=== PATIENT | female | born 1955 | race Caucasian/White ===

== ENCOUNTER 2022-11-17 14:03 | Inpatient (IN) ==
--- NOTE | 2022-11-17 14:22 | Emergency Department Note ---
HPI General Chief complaint: Shortness of Breath/Dyspnea Stated complaint: SOB Time Seen by Provider: 11/17/22 14:07 Limitations: no limitations History of Present Illness HPI Narrative: Narrative: 67-year-old female with long history of pneumonia, COPD and heart failure presents the ER complaining of shortness of breath. She notes that she quit taking her torsemide she is very swollen and cannot breathe. She notes this is an going on since she was just discharged from the hospital in May 2022. She is seeing her PCP and is taking her inhalers but she is almost out of her nebulizer medications. She notes she uses oxygen at home intermittently but her dog recently to the extension cord and the oxygen tube. She denies any other complaints except for leg swelling, fatigue and weakness. She notes she would have come into the hospital sooner except her insurance dropped her coverage short term and she did not have the money to come to the ER. She is unsure why her regular doctor told her to quit taking her torsemide. Related Data Previous Rx's Medication Instructions Recorded amoxicillin 875 mg-potassium 1 tab PO BID #20 tabs 11/17/22 clavulanate 125 mg tablet azithromycin 250 mg tablet See Rx Instructions PO .COMPLEX #6 11/17/22 tabs furosemide 40 mg tablet (Lasix) 40 mg PO QAM #10 tabs 11/17/22 prednisone 20 mg tablet 40 mg PO QDAY 5 days #10 tabs 11/17/22 Allergies Allergy/AdvReac Type Severity Reaction Status Date / Time diphenhydramine AdvReac Intermediate Other Verified 11/17/22 14:12 fluticasone AdvReac Intermediate Other Verified 11/17/22 14:12 [From Advair Diskus] gabapentin AdvReac Intermediate Other Verified 11/17/22 14:12 salmeterol AdvReac Intermediate Other Verified 11/17/22 14:12 [From Advair Diskus] Sulfa (Sulfonamide AdvReac Intermediate Hives Verified 11/17/22 14:12 Antibiotics) Review of Systems ROS ROS Narrative: Narrative: Constitutional: Reports as per HPI; Denies fever, chills or sweats Cardiovascular: Reports palpitations; Denies chest pain or syncope Respiratory: Reports shortness of breath, cough, wheezes and phlegm Gastrointestinal: Reports nausea; Denies abdominal pain, vomiting or hematemesis PFSH Narrative Patient History Narrative: Narrative: Medical/Surgical/Family History All Active Problems (Updated 11/17/22 @ 18:45 by LLOYD Ewing) Congestive heart failure (Acute) Acute exacerbation of chronic obstructive pulmonary disease (Acute) Abnormal chest x-ray (Acute) Abnormal chest x-ray with multiple nodules (Acute) Hypoxemia (Acute) Exam Narrative Narrative: Narrative: General Limitations: no limitations General appearance: Present alert, grimacing, in no apparent distress, thin and other (Chronically ill-appearing); Absent in distress Head Head: Present atraumatic, normocephalic and normal inspection Eye Eye: Present normal appearance; Absent scleral icterus or conjunctival injection Respiratory Respiratory: Present rales/crackles (Bilateral lower quadrant); Absent respiratory distress Cardiovascular Cardiovascular: Present regular rate, normal rhythm, normal heart sounds and other (Frequent PVCs) Adbominal Abdominal: Present soft and normal bowel sounds; Absent distention or tenderness Neurological Neurological: Present alert and oriented X3 Psychiatric Psychiatric: Present normal affect and normal mood Course Vital Signs Vital signs: Vital Signs Temperature 98.1 F 11/17/22 14:10 Pulse Rate 83 11/17/22 14:10 Respiratory Rate 20 11/17/22 14:10 Blood Pressure 142/73 11/17/22 14:10 Pulse Oximetry (%) 94 11/17/22 14:10 Oxygen Delivery Method Room Air 11/17/22 14:10 Temperature 98.1 F 11/17/22 14:10 Pulse Rate 79 11/17/22 18:01 Respiratory Rate 22 11/17/22 18:01 Blood Pressure 114/96 11/17/22 18:01 Pulse Oximetry (%) 97 11/17/22 18:01 Oxygen Delivery Method Nasal Cannula 11/17/22 18:01 Oxygen Flow Rate (L/min) 2 11/17/22 18:01 [facility] MDM Narrative Medical decision making narrative: Narrative: Clinical considerations include but not limited to COPD exacerbation, pneumonia, heart failure, NH. On arrival labs are ordered and IV is started. Patient's BNP is found to be 17,000. She is found to have approximately 4 torsemide pills left in her possession at approximately 20 mg per dose. EKG is reviewed by Dr. Ibanez reports nothing is acute. No ischemic changes. Repeat troponin is downtrending as first 1 was 1.10 and is likely due to a noncardiac cause is likely related to her hypoxemia. She notes she has been very active as she is currently on vacation and has traveled away from home. Labs are very reassuring and chest x-ray reveals significant pulmonary edema. 2 masses are found and patient is encouraged to follow-up for an outpatient CT to make sure that these resolve after receiving diuretics. She verbalizes understanding. She is also diagnosed with COPD exacerbation and her sputum culture is currently pending. She is discharged on azithromycin, Augmentin and prednisone in addition to Lasix 40 mg. She is given oxygen tubing here and she is also ordered a cord that should be here today or tomorrow as she does not have the one for her current oxygen machine. She also agrees to make sure she takes her Lasix as she feels this was this caused her to swell up and make her not breathe. She is requesting to be discharged at this time. She agrees to recheck for any new or worsening symptoms. She is given a total of 100 mg of Lasix as she was given 80 mg of Lasix on arrival an additional 20 prior to departure. Oxygen saturation is found to be 92% on room air after Lasix administration. Oxygen is removed and she quickly drops down to 82% on room air at rest. We are unable to get home oxygen since she already has an oxygen supplier for at this time.[id number] Mahajan who agreed to accept patient for admission at this time to acute medical surgical status Lab Data 11/17/22 14:20 Labs: Lab Results 11/17/22 11/17/22 11/17/22 Range/Units 14:20 14:20 14:20 WBC 13.8 H (4.5-11.0) K/mcL RBC 3.38 L (3.59-5.38) M/mcL Hgb 9.4 L (11.2-15.7) g/dL Hct 28.6 L (34.1-44.9) % POC Hct (36-48) MCV 84.6 (80.0-100.0) fL MCH 27.8 (26.0-34.0) pg MCHC 32.9 (31.0-36.0) g/dL RDW 15.3 H (11.5-14.5) % Plt Count 352 (140-440) K/mcL MPV 10.1 (8.8-12.5) fL Immature Gran % (Auto) 0.4 (0.0-0.5) % Neut % (Auto) 76.1 (38.0-78.0) % Lymph % (Auto) 13.3 L (15.5-49.0) % [place] % (Auto) 4.9 (1.0-12.0) % Eos % (Auto) 4.4 (0.0-7.0) % Baso % (Auto) 0.9 (0.0-2.0) % Lymph # (Auto) 1.84 (1.50-4.80) K/mcL [place] # (Auto) 0.68 (0.10-0.90) K/mcL Eos # (Auto) 0.61 (0.00-0.70) K/mcL Baso # (Auto) 0.12 (0.00-0.30) K/mcL Immature Gran # 0.05 (0.00-0.05) K/mcl Absolute Neutrophils 10.49 H (1.80-8.00) K/mcL POC VBG pH (7.32-7.42) POC VBG pCO2 at Temp (41-51) POC VBG pO2 (25-40) POC VBG HCO3 (24-28) POC VBG Total CO2 (25-29) POC Venous O2 Sat (40-70) POC VBG Base Excess (-2-2) VBG Lactic Acid (0.5-2) POC Sodium (133-145) POC Potassium (3.3-5.1) POC Chloride (96-108) POC Total CO2 (22-30) POC BUN (6-20) POC Creatinine (0.6-1.2) POC Glucose (70-105) POC WB Ioniz Calcium (1.16-1.32) Troponin T 0.10 H* (<0.03) ng/mL NT-Pro-B Natriuret Pep 99293.0 H (<125.0) pg/mL POC Troponin I (0.00-0.08) 11/17/22 11/17/22 11/17/22 Range/Units 14:24 14:39 15:29 WBC (4.5-11.0) K/mcL RBC (3.59-5.38) M/mcL Hgb (11.2-15.7) g/dL Hct (34.1-44.9) % POC Hct 31.0 L (36-48) MCV (80.0-100.0) fL MCH (26.0-34.0) pg MCHC (31.0-36.0) g/dL RDW (11.5-14.5) % Plt Count (140-440) K/mcL MPV (8.8-12.5) fL Immature Gran % (Auto) (0.0-0.5) % Neut % (Auto) (38.0-78.0) % Lymph % (Auto) (15.5-49.0) % [place] % (Auto) (1.0-12.0) % Eos % (Auto) (0.0-7.0) % Baso % (Auto) (0.0-2.0) % Lymph # (Auto) (1.50-4.80) K/mcL [place] # (Auto) (0.10-0.90) K/mcL Eos # (Auto) (0.00-0.70) K/mcL Baso # (Auto) (0.00-0.30) K/mcL Immature Gran # (0.00-0.05) K/mcl Absolute Neutrophils (1.80-8.00) K/mcL POC VBG pH 7.36 (7.32-7.42) POC VBG pCO2 at Temp 50.0 (41-51) POC VBG pO2 19 L (25-40) POC VBG HCO3 28.0 (24-28) POC VBG Total CO2 29.0 (25-29) POC Venous O2 Sat 26.0 L (40-70) POC VBG Base Excess 2.0 (-2-2) VBG Lactic Acid 1.4 (0.5-2) POC Sodium 132 L (133-145) POC Potassium 4.5 (3.3-5.1) POC Chloride 100 (96-108) POC Total CO2 24.0 (22-30) POC BUN 39 H (6-20) POC Creatinine 1.5 H (0.6-1.2) POC Glucose 178 H (70-105) POC WB Ioniz Calcium 1.02 L (1.16-1.32) Troponin T (<0.03) ng/mL NT-Pro-B Natriuret Pep (<125.0) pg/mL POC Troponin I 0.31 H (0.00-0.08) 11/17/22 Range/Units 18:17 WBC (4.5-11.0) K/mcL RBC (3.59-5.38) M/mcL Hgb (11.2-15.7) g/dL Hct (34.1-44.9) % POC Hct (36-48) MCV (80.0-100.0) fL MCH (26.0-34.0) pg MCHC (31.0-36.0) g/dL RDW (11.5-14.5) % Plt Count (140-440) K/mcL MPV (8.8-12.5) fL Immature Gran % (Auto) (0.0-0.5) % Neut % (Auto) (38.0-78.0) % Lymph % (Auto) (15.5-49.0) % [place] % (Auto) (1.0-12.0) % Eos % (Auto) (0.0-7.0) % Baso % (Auto) (0.0-2.0) % Lymph # (Auto) (1.50-4.80) K/mcL [place] # (Auto) (0.10-0.90) K/mcL Eos # (Auto) (0.00-0.70) K/mcL Baso # (Auto) (0.00-0.30) K/mcL Immature Gran # (0.00-0.05) K/mcl Absolute Neutrophils (1.80-8.00) K/mcL POC VBG pH (7.32-7.42) POC VBG pCO2 at Temp (41-51) POC VBG pO2 (25-40) POC VBG HCO3 (24-28) POC VBG Total CO2 (25-29) POC Venous O2 Sat (40-70) POC VBG Base Excess (-2-2) VBG Lactic Acid (0.5-2) POC Sodium (133-145) POC Potassium (3.3-5.1) POC Chloride (96-108) POC Total CO2 (22-30) POC BUN (6-20) POC Creatinine (0.6-1.2) POC Glucose (70-105) POC WB Ioniz Calcium (1.16-1.32) Troponin T (<0.03) ng/mL NT-Pro-B Natriuret Pep (<125.0) pg/mL POC Troponin I 0.27 H (0.00-0.08) Discharge Plan Patient/Caregiver Discharge Instructions Pt seen by [employer] HELPER/PA only: Yes Clinical Impression: Congestive heart failure, Acute exacerbation of chronic obstructive pulmonary disease, Abnormal chest x-ray, Abnormal chest x-ray with multiple nodules, Hypoxemia Activity Restrictions/Additional Instructions: As discussed make sure to use at least 2 L per nasal cannula oxygen 24 hours a day and to you are completely improved. Make sure to follow-up with your PCP as soon as you get home. Use your inhalers as prescribed. Also use your nebulizer several times a day. Your temporary sent multiple prescription scription's including prednisone, furosemide and 2 different antibiotics. Patient Disposition: Xfer [facility] Prescriptions: New furosemide [Lasix] 40 mg tablet 40 mg PO QAM Qty: 10 0RF azithromycin 250 mg tablet See Rx Instructions .ROUTE .COMPLEX Qty: 6 0RF Rx Instructions: For 250 mg dose pack: take 500 mg today (day 1), then 250 mg for 4 days (days 2-5) amoxicillin-pot clavulanate 875-125 mg tablet 1 tab PO BID Qty: 20 0RF prednisone 20 mg tablet 40 mg PO QDAY 5 Days Qty: 10 0RF Prescription drug monitoring program results: PDMP reviewed and no issues identified
[2022-11-17 14:29] LABS: POC Calcium, Ionized 1.02 (1.16-1.32); POC Creatinine 1.5 (0.6-1.2); POC Potassium 4.5 (3.3-5.1)
[2022-11-17 14:52] LABS: Basophils # (Auto) 0.12 K/mcL (0.00-0.30); Basophils % (Auto) 0.9 % (0.0-2.0); Eosinophils # (Auto) 0.61 K/mcL (0.00-0.70); Eosinophils % (Auto) 4.4 % (0.0-7.0); Hematocrit 28.6 % (34.1-44.9); Hemoglobin 9.4 g/dL (11.2-15.7); Lymphocytes # (Auto) 1.84 K/mcL (1.50-4.80); Lymphocytes % (Auto) 13.3 % (15.5-49.0); Mean Cell Volume 84.6 fL (80.0-100.0); Mean Corpuscular HGB Conc 32.9 g/dL (31.0-36.0); Mean Platelet Volume 10.1 fL (8.8-12.5); Monocytes # (Auto) 0.68 K/mcL (0.10-0.90); Monocytes % (Auto) 4.9 % (1.0-12.0); Neutrophils % (Auto) 76.1 % (38.0-78.0); Platelet Count 352 K/mcL (140-440); RBC 3.38 M/mcL (3.59-5.38); Red Cell Distribution Width 15.3 % (11.5-14.5); WBC 13.8 K/mcL (4.5-11.0)
[2022-11-17] MEDS ORDERED: FUROSEMIDE 100 MG/10 ML VIAL IV ONE (15:22)
--- NOTE | 2022-11-17 15:53 | XRay Report ---
CLINICAL INFORMATION: dyspnea COMPARISON: None. FINDINGS: Sternotomy changes noted. The heart is moderately enlarged. Mediastinum is unremarkable. Pulmonary vessels are mildly distended and there is moderate interstitial edema in both lungs. Small bilateral pleural effusions appreciated. Minor atelectasis seen in the left base. A 15 mm pulmonary nodule seen in the right midlung. IMPRESSION: Moderate CHF. Pulmonary nodule right midlung. This could represent focal atypical edema rather than a more ominous entity such as malignancy. Suggest repeat two-view chest x-ray when patient returns to clinical baseline for reassessment Interpreted and Authenticated by: Jarad Barksdale 11/17/22
[2022-11-17] MEDS ORDERED: FUROSEMIDE 20 MG/2 ML VIAL IV ONE (18:06)
--- NOTE | 2022-11-17 19:14 | Internal Med History&Physical ---
HPI History of Present Illness Patient information: Note initiated : 11/17/22 at 7:12 pm Service Date, if different from initiated Date: [] Patient: Nadeen Cabrales a 67 y/o F admitted on for Shortness of breath. Chief Complaint: [shortness of breath] Chief complaint: shortness of breath History of present illness: Ms. Cabrales is a 67 year old F history of congestive heart failure, CAD status post CABG, asthma, ex cigarette smoker, presenting with 6 months of gradually worsening shortness of breath. Patient stated she was hospitalized in May 2022 for CHF as well as pneumonia. Since she got out of the hospital, she is stated that her shortness of breath never improved and instead gradually worsening. At 1 point she was being placed on torsemide but then her PCP later asked her to stop taking it. Patient have home oxygen but she only used it as needed for shortness of breath. Anyway, she is coming of worsening shortness of breath, together with productive cough with brown sputum, respiratory wheezing, right lateral rib/chest pain, bilateral leg swelling, unintentional weight gain although she cannot quantify how much, as well as orthopnea with 2 pillows. She also is complaining of dyspnea on exertion with 20 feet's. Vital signs at ED presentation significant for oxygen desaturation to the point she was being placed up to 3 L/min nasal cannula oxygen. Labs significant for leukocytosis with WBC 13.8. Serum lactic acid 1.4. BNP 79184. Troponin 0.31, 0.21. Chest x- ray showing moderate CHF, and shows pulmonary noted right midlung. Admission request is called for acute on chronic respiratory failure with hypoxia suspecting CHF exacerbation and/or COPD exacerbations. Constitutional Constitutional: Absent chills, excessive sweating, fatigue, fever(s) or weakness EENT Eyes: Absent blurry vision, change in vision, loss of vision or other visual disturbances Ears: Absent decreased hearing or tinnitus Nose, mouth and throat: Absent abnormal hearing, dry mouth, headache(s), nasal congestion or sore throat Cardiovascular Cardiovascular: Present chest pain, dyspnea, dyspnea on exertion and edema; Absent chest pain at rest, irregular heart rhythm or palpatations Respiratory Respiratory: Present cough, dyspnea, dyspnea on exertion, wheezing and excessive phlegm production Gastrointestinal Gastrointestinal: Absent abdominal pain, constipation, diarrhea, nausea or vomiting Musculoskeletal Musculoskeletal: Absent back pain, deformity, limited range of motion, muscle cramps, muscle weakness or numbness Integumentary Integumentary: Absent lesions, rash or wounds Neurological Neurological: Absent focal weakness, headache(s) or numbness Psychiatric Psychiatric: Absent anxiety, depression or hallucinations PFSH PFSH All Active Problems (Updated 11/17/22 @ 19:24 by Melvin Mahajan MD) Troponin level elevated (Acute) Acute and chronic respiratory failure with hypoxia (Acute) H/O coronary atherosclerosis (Acute) Chronic kidney disease (CKD) stage G3a/A2, moderately decreased glomerular fi ltration rate (GFR) between 45-59 mL/min/1.73 square meter and albuminuria creatinine ratio between 30-299 mg/g (Acute) Pulmonary nodule (Acute) CHF exacerbation (Acute) Congestive heart failure (Acute) Acute exacerbation of chronic obstructive pulmonary disease (Acute) Abnormal chest x-ray (Acute) Abnormal chest x-ray with multiple nodules (Acute) Hypoxemia (Acute) MEDS/ALLERGIES Home Medications and Allergies Home Medications Medication Instructions Recorded Confirmed Type amoxicillin 875 mg-potassium 1 tab PO BID #20 tabs 11/17/22 Rx clavulanate 125 mg tablet azithromycin 250 mg tablet See Rx Instructions PO .COMPLEX #6 11/17/22 Rx tabs furosemide 40 mg tablet (Lasix) 40 mg PO QAM #10 tabs 11/17/22 Rx prednisone 20 mg tablet 40 mg PO QDAY 5 days #10 tabs 11/17/22 Rx Allergies Allergy/AdvReac Type Severity Reaction Status Date / Time diphenhydramine AdvReac Intermediate Other Verified 11/17/22 14:12 fluticasone AdvReac Intermediate Other Verified 11/17/22 14:12 [From Advair Diskus] gabapentin AdvReac Intermediate Other Verified 11/17/22 14:12 salmeterol AdvReac Intermediate Other Verified 11/17/22 14:12 [From Advair Diskus] Sulfa (Sulfonamide AdvReac Intermediate Hives Verified 11/17/22 14:12 Antibiotics) EXAM Constitutional Vitals: Temp Pulse Resp BP Pulse Ox O2 Del Method O2 Flow Rate 36.7 C 80 18 142/76 94 Nasal Cannula 2 11/17/22 14:10 11/17/22 18:31 11/17/22 18:31 11/17/22 18:31 11/17/22 18:31 11/17/22 18:01 11/17/22 18:01 General appearance: cooperative and no acute distress Head Head exam: Present atraumatic and normocephalic Eye Eye exam: Present EOMI and PERRL ENT ENT exam: Present mucous membranes moist, normal exam and normal external ear exam Additional comments: Nasal cannula in place Neck Neck exam: Present normal inspection; Absent lymphadenopathy, tenderness or thyr omegaly Respiratory Respiratory exam: Present rhonchi and wheezes; Absent accessory muscle use or respiratory distress Cardiovascular Cardiovascular exam: Present normal rate and rhythm; Absent JVD Additional comments: Sternal surgical incision GI/Abdominal GI/Abdominal exam: Present normal bowel sounds and soft; Absent organomegaly or tenderness Extremities Exam Extremities exam: Present full ROM, normal capillary refill, normal inspection and pedal edema; Absent tenderness Additional comments: 2+ pitting edema bilateral lower extremities up to knees Neurological Exam Neurological exam: Present alert, CN II-XII intact and oriented X3; Absent motor sensory deficit Psychiatric Psychiatric exam: Present normal affect and normal mood; Absent anxious or depressed Skin Skin exam: Present dry and intact DATA Data Completed and Pending Labs: Labs from last 24 hours 11/17/22 11/17/22 11/17/22 18:17 15:29 14:39 WBC RBC Hgb Hct POC Hct MCV MCH MCHC RDW Plt Count MPV Immature Gran % (Auto) Neut % (Auto) Lymph % (Auto) [place] % (Auto) Eos % (Auto) Baso % (Auto) Lymph # (Auto) [place] # (Auto) Eos # (Auto) Baso # (Auto) Immature Gran # Absolute Neutrophils POC VBG pH 7.36 POC VBG pCO2 at Temp 50.0 POC VBG pO2 19 L POC VBG HCO3 28.0 POC VBG Total CO2 29.0 POC Venous O2 Sat 26.0 L POC VBG Base Excess 2.0 VBG Lactic Acid 1.4 POC Sodium POC Potassium POC Chloride POC Total CO2 POC BUN POC Creatinine POC Glucose POC WB Ioniz Calcium Troponin T NT-Pro-B Natriuret Pep POC Troponin I 0.27 H 0.31 H 11/17/22 11/17/22 11/17/22 14:24 14:20 14:20 WBC RBC Hgb Hct POC Hct 31.0 L MCV MCH MCHC RDW Plt Count MPV Immature Gran % (Auto) Neut % (Auto) Lymph % (Auto) [place] % (Auto) Eos % (Auto) Baso % (Auto) Lymph # (Auto) [place] # (Auto) Eos # (Auto) Baso # (Auto) Immature Gran # Absolute Neutrophils POC VBG pH POC VBG pCO2 at Temp POC VBG pO2 POC VBG HCO3 POC VBG Total CO2 POC Venous O2 Sat POC VBG Base Excess VBG Lactic Acid POC Sodium 132 L POC Potassium 4.5 POC Chloride 100 POC Total CO2 24.0 POC BUN 39 H POC Creatinine 1.5 H POC Glucose 178 H POC WB Ioniz Calcium 1.02 L Troponin T 0.10 H* NT-Pro-B Natriuret Pep 88749.0 H POC Troponin I 11/17/22 14:20 WBC 13.8 H RBC 3.38 L Hgb 9.4 L Hct 28.6 L POC Hct MCV 84.6 MCH 27.8 MCHC 32.9 RDW 15.3 H Plt Count 352 MPV 10.1 Immature Gran % (Auto) 0.4 Neut % (Auto) 76.1 Lymph % (Auto) 13.3 L [place] % (Auto) 4.9 Eos % (Auto) 4.4 Baso % (Auto) 0.9 Lymph # (Auto) 1.84 [place] # (Auto) 0.68 Eos # (Auto) 0.61 Baso # (Auto) 0.12 Immature Gran # 0.05 Absolute Neutrophils 10.49 H POC VBG pH POC VBG pCO2 at Temp POC VBG pO2 POC VBG HCO3 POC VBG Total CO2 POC Venous O2 Sat POC VBG Base Excess VBG Lactic Acid POC Sodium POC Potassium POC Chloride POC Total CO2 POC BUN POC Creatinine POC Glucose POC WB Ioniz Calcium Troponin T NT-Pro-B Natriuret Pep POC Troponin I A/P Assessment and plan (1) CHF exacerbation: Status: Acute (2) Acute exacerbation of chronic obstructive pulmonary disease: Status: Acute (3) Pulmonary nodule: Status: Acute (4) Chronic kidney disease (CKD) stage G3a/A2, moderately decreased glomerular filtration rate (GFR) between 45-59 mL/min/1.73 square meter and albuminuria creatinine ratio between 30-299 mg/g: Status: Acute (5) H/O coronary atherosclerosis: Status: Acute (6) Acute and chronic respiratory failure with hypoxia: Status: Acute (7) Troponin level elevated: Status: Acute Narrative A/P Narrative: Assessment and Plans: 1. Acute on chronic respiratory failure with hypoxia: DDx: CHF exacerbation, COPD exacerbation, pneumonia: Supplemental oxygen therapy titrate to achieve spo2>=88-92% Physical therapy evaluation and treatment Strict intake and output measurement Daily weigh 2L/day fluid restriction Lasix 20mg IV BID Lisinopril No beta sy during exacerbation 2D echocardiogram Telemetry Prednisone DuoNEB NEB q4hr scheduled Albuterol NEB q2hr PRN wheezing Robitussin DM Serial lactic acid Procalcitonin level CoVID screening 2. Pulmonary nodule, right midlung: Follow up study with CT angiogram of the chest Oxycodone Morphine Toradol 3. Chronic kidney disease III: DDx: Acute kidney injury: Avoid nephrotoxic agents Saline lock with diuretics CMP in the morning to trend kidney functions 4. Elevated serum troponin: Likely demand ischemic type 2 ischemic given CHF Serial troponin Morphine Telemetry 5. h/o CAD s/p CABG: Aspirin Lipitor No beta sy during exacerbation GI ppx: not currently indicated DVT ppx: Heparin Code status: Full Prognosis: guarded Disposition: inpatient med surg telemetry Time Spent With Patient Time: Total time spent is greater than 50% in coordination of care (as documented) at patient's floor/unit and/or counseling patient: Initial: Total time with patient: 55 - 74 minutes
[2022-11-17] MEDS ORDERED: traZODone HCL 50 MG TABLET PO PRN (20:43)
[2022-11-17] MEDS ORDERED: morphine 4 MG/ML VIAL IV PRN (20:43)
[2022-11-17] MEDS ORDERED: ACETAMINOPHEN 325 MG TABLET PO PRN (20:43)
[2022-11-17] MEDS ORDERED: ALBUTEROL SULFATE 2.5 MG/3 ML NEBULIZER NEB PRN (20:43)
[2022-11-17] MEDS ORDERED: ONDANSETRON 4 MG/2 ML VIAL IV PRN (20:43)
[2022-11-17] MEDS ORDERED: KETOROLAC 15 MG/ML VIAL IV PRN (20:56)
[2022-11-17] MEDS ORDERED: MELATONIN 3 MG TABLET PO PRN (21:02)
[2022-11-17] MEDS: HEPARIN 5,000 UNIT/ML VIAL SQ SCH (21:41)
[2022-11-17] MEDS: DOCUSATE SODIUM 100 MG CAPSULE PO SCH (21:41)
[2022-11-17] MEDS: SENNOSIDES 1 TABLET PO SCH (21:41)
[2022-11-17] MEDS: 0.9 % SODIUM CHLORIDE 10 ML SYRINGE IV SCH (21:42)
[2022-11-17] MEDS ORDERED: IOPAMIDOL 100 ML BOTTLE IV ONE (21:46)
[2022-11-17] MEDS: AZITHROMYCIN 250 MG TABLET PO SCH (22:47)
[2022-11-17] MEDS: IPRATROPIUM/ALBUTEROL 3 ML AMPUL.NEB NEB SCH (22:50)
[2022-11-18] MEDS: IPRATROPIUM/ALBUTEROL 3 ML AMPUL.NEB NEB SCH ×5 (03:01→19:04)
--- NOTE | 2022-11-18 03:43 | Cat Scan Report ---
CLINICAL INFORMATION: Dyspnea. History of COPD. Pulmonary nodule in the right midlung COMPARISON: Chest x-ray 11/17/2022 TECHNIQUE: 80ml of Isovue-370 were injected intravenously. Using SmartPrep to maximize pulmonary artery opacification, .625mm helical slices were obtained from the lung apices through the lung bases. Following reconstruction, 2.5 mm sagittal, coronal, and axial reformations were processed. The exam was reviewed at mediastinal, lung, and bone windows. The exam was performed using radiation dose optimization techniques including, but not limited to, automated exposure control, adjustment of the mA and/or kV according to patient size and use of iterative reconstruction technique. FINDINGS: Pulmonary parenchymal windows show moderate centrilobular emphysema featuring chronic bronchitis with elevated lung volumes wall thickening/dilatation of the bronchi and scattered bullae predominantly in the upper lobes. There is also mild edema in the interlobular septi patible with CHF. A 2.6 x 1.4 cm nodular density in the lateral right middle lobe with slightly irregular borders appreciated. This is either an atypical focal infiltrate or potentially primary pulmonary malignancy. No other nodules appreciated. Moderate bilateral pleural effusions are present. Mediastinal windows show the heart is markedly enlarged with extremely heavy calcific plaque in the coronary arteries. Sternotomy/CABG changes noted.. Moderate edema in the mediastinum obscures the fat precluding lymph node evaluation.. Esophagus is grossly normal. Thyroid is unremarkable. Bone windows show no osseous abnormality. Images through the superior abdomen show a edema in the upper retroperitoneal region which obscures the pancreas architecture. Calcification seen in this region suggesting chronic pancreatitis. Possibility of active pancreatic inflammation is not excluded. IMPRESSION: 1. No evidence of pulmonary embolus. 2. Moderate CHF. 3. Moderate bilateral pleural effusions. 4. 2.6 cm right middle lobe nodule. This is more likely inflammatory than due to primary malignancy. Suggest short-term noncontrast chest CT in 4-6 weeks. 5. Possible pancreatitis. Please correlate with amylase and lipase. Interpreted and Authenticated by: Jarad Barksdale 11/18/22
[2022-11-18] MEDS: oxyCODONE IR 5 MG TABLET PO PRN ×3 (03:54→21:16)
[2022-11-18] MEDS: 0.9 % SODIUM CHLORIDE 10 ML SYRINGE IV SCH ×3 (05:26→21:17)
[2022-11-18] MEDS ORDERED: DEXTROSE 31 GM ORAL.SUSP PO PRN ×2 (06:13→12:25)
[2022-11-18] MEDS ORDERED: DEXTROSE 50% 50 ML VIAL IV PRN ×2 (06:13→12:25)
[2022-11-18 06:19] LABS: Basophils % (Auto) 0.8 % (0.0-2.0); Eosinophils # (Auto) 0.61 K/mcL (0.00-0.70); Eosinophils % (Auto) 4.7 % (0.0-7.0); Hematocrit 29.5 % (34.1-44.9); Hemoglobin 9.6 g/dL (11.2-15.7); Lymphocytes # (Auto) 1.62 K/mcL (1.50-4.80); Lymphocytes % (Auto) 12.6 % (15.5-49.0); Mean Cell Volume 83.8 fL (80.0-100.0); Mean Corpuscular HGB Conc 32.5 g/dL (31.0-36.0); Monocytes # (Auto) 0.52 K/mcL (0.10-0.90); Neutrophils % (Auto) 77.6 % (38.0-78.0); Platelet Count 403 K/mcL (140-440); RBC 3.52 M/mcL (3.59-5.38); Red Cell Distribution Width 15.6 % (11.5-14.5); WBC 12.9 K/mcL (4.5-11.0)
[2022-11-18 06:46] LABS: ALT/SGPT 27 U/L (<40); AST/SGOT 36 U/L (<32); Albumin 3.3 gm/dL (3.2-5.2); Albumin/Globulin Ratio 1.1 (1.0-2.3); Alkaline Phosphatase 116 U/L (39-117); Bilirubin,Total 0.4 mg/dL (0.1-1.0); Blood Urea Nitrogen 35 mg/dL (8-23); Calcium 8.8 mg/dL (8.6-10.4); Carbon Dioxide 24 mmol/L (22-30); Chloride 100 mmol/L (96-108); Globulin 3.1 gm/dL (2.2-3.7); Glomerular Filtration Rate 51; Glucose 153 mg/dL (70-105)
[2022-11-18] MEDS: INSULIN LISPRO 1 UNIT/0.01 ML UNIT SQ SCH ×5 (08:18→21:17)
[2022-11-18] MEDS: FUROSEMIDE 20 MG/2 ML VIAL IV SCH ×2 (08:23→17:31)
[2022-11-18] MEDS: predniSONE 20 MG TABLET PO SCH (08:36)
[2022-11-18] MEDS: ATORVASTATIN 40 MG TABLET PO SCH (10:17)
[2022-11-18] MEDS: HEPARIN 5,000 UNIT/ML VIAL SQ SCH ×2 (10:19→21:16)
[2022-11-18] MEDS: LISINOPRIL 2.5 MG TABLET PO SCH ×2 (10:19→10:27)
[2022-11-18] MEDS: ASPIRIN 81 MG TAB.CHEW CHEWED SCH (10:19)
[2022-11-18] MEDS: DOCUSATE SODIUM 100 MG CAPSULE PO SCH ×2 (10:20→21:16)
--- NOTE | 2022-11-18 12:34 | Internal Med Progress Note ---
SUBJECTIVE Subjective Patient information: Note initiated : 11/18/22 at 12:27 pm Service Date, if different from initiated Date: [] Patient: Nadeen Cabrales a 67 y/o F admitted on 11/17/22 for Shortness of breath, CHF, COPD exac.. Chief Complaint: [] Interval history: Ms. Cabrales is a 67 year old F history of congestive heart failure, CAD status post CABG, asthma, ex cigarette smoker, presenting with 6 months of gradually worsening shortness of breath. Patient stated she was hospitalized in May 2022 for CHF as well as pneumonia. Since she got out of the hospital, she is stated that her shortness of breath never improved and instead gradually worsening. At 1 point she was being placed on torsemide but then her PCP later asked her to stop taking it. Patient have home oxygen but she only used it as needed for shortness of breath. Anyway, she is coming of worsening shortness of breath, together with productive cough with brown sputum, respiratory wheezing, right lateral rib/chest pain, bilateral leg swelling, unintentional weight gain although she cannot quantify how much, as well as orthopnea with 2 pillows. She also is complaining of dyspnea on exertion with 20 feet's. Vital signs at ED presentation significant for oxygen desaturation to the point she was being placed up to 3 L/min nasal cannula oxygen. Labs significant for leukocytosis with WBC 13.8. Serum lactic acid 1.4. BNP 52227. Troponin 0.31, 0.21. Chest x- ray showing moderate CHF, and shows pulmonary noted right midlung. Admission request is called for acute on chronic respiratory failure with hypoxia suspecting CHF exacerbation and/or COPD exacerbations. 11/18: Patient has been afebrile overnight. Patient is on 2 L/min nasal cannula oxygen which is baseline. Blood and respiratory culture no growth to date. COVID screening negative. Fasting glucose 163. Pre lunch time glucose 405. Serial troponin downtrended. CTA of the lung showed no evidence of pulmonary embolism, moderate CHF, moderate bilateral pleural effusions, and 2.6 cm right middle lobe nodule likely inflammatory. She is complaining of same due to degree of shortness of breath. She is complaining of productive cough with brown sputum. She is complaining of respiratory wheezings. She denies any chest pain. She denies any fever chills or diaphoresis. Pending 2D echocardiogram report. Continue supplemental oxygen therapy. Continue IV Lasix as well as losartan for CHF exacerbations. Continue prednisone DuoNeb and albuterol and azithromycin for COPD exacerbations. Repeat CT of the chest in 6 to 8 weeks to follow-up with the pulmonary nodule. Lantus 28 units at bedtime plus high scale sliding scale insulin AC adjust for better glycemic control associated with type 1 diabetes mellitus. Physical therapy evaluation and treatment for placement planning. Overall condition guarded. Stay in [facility]. Constitutional Vitals: Vital Signs Temp Pulse Resp BP Pulse Ox O2 Del Method O2 Flow Rate 37.0 C 90 16 129/51 93 Nasal Cannula 2 11/18/22 11:44 11/18/22 11:44 11/18/22 11:44 11/18/22 11:44 11/18/22 11:44 11/18/22 11:44 11/18/22 11:44 Period Temp Pulse Resp BP Sys/[place] Pulse Ox O2 Del Method O2 Flow Rate Last 24 Hr 36.3 C-37.0 C 68-90 14-24 113-151/51-110 90-98 Nasal Cannula- Room Air 2-2 Intake and Output 11/18/22 11/18/22 11/18/22 03:59 11:59 19:59 Intake Total 100 1440 Output Total 1675 300 Balance -1575 1140 Weight 66.848 kg Intake & Output: Intake & Output 11/18/22 11/18/22 11/18/22 03:59 11:59 19:59 Intake Total 100 1440 Output Total 1675 300 Balance -1575 1140 Weight 66.848 kg Intake: Oral 100 1440 Output: Void Amount 1675 300 Other: Meal Breakfast Percent of Meal Consumed 100% Urine Appearance Clear Clear Small Blood Clots Urine Color Yellow Yellow Urine Odor Normal Stool Size Small Stool Color Brown Stool Consistency Loose # Voids 1 # Bowel Movements 1 Head Head exam: Present atraumatic and normal inspection Eye Eye exam: Present normal appearance ENT ENT exam: Present mucous membranes moist, normal exam and normal external ear exam Additional comments: Nasal cannula in place Neck Neck exam: Present normal inspection Respiratory Respiratory exam: Present decreased breath sounds, rhonchi and wheezes Cardiovascular Cardiovascular exam: Present normal rate and rhythm Additional comments: Sternal surgical scar, well healed GI/Abdominal GI/Abdominal exam: Present normal bowel sounds Back Exam Back exam: Present normal inspection Neurological Exam Neurological exam: Present alert and oriented X3 Skin Skin exam: Present intact and warm OBJ DATA Labs 11/18/22 05:19 11/18/22 05:19 Labs: Abnormal Lab Results 11/18/22 11/18/22 11/18/22 10:30 05:19 05:19 WBC 12.9 H RBC 3.52 L Hgb 9.6 L Hct 29.5 L POC Hct RDW 15.6 H Lymph % (Auto) 12.6 L Absolute Neutrophils 10.01 H POC VBG pO2 POC Venous O2 Sat POC Sodium POC BUN BUN 35 H POC Creatinine Glucose 153 H POC Glucose POC WB Ioniz Calcium AST 36 H Troponin T NT-Pro-B Natriuret Pep Procalcitonin POC Troponin I 0.16 H 11/17/22 11/17/22 11/17/22 22:10 18:17 15:29 WBC RBC Hgb Hct POC Hct RDW Lymph % (Auto) Absolute Neutrophils POC VBG pO2 19 L POC Venous O2 Sat 26.0 L POC Sodium POC BUN BUN POC Creatinine Glucose POC Glucose POC WB Ioniz Calcium AST Troponin T NT-Pro-B Natriuret Pep Procalcitonin POC Troponin I 0.27 H 0.27 H 11/17/22 11/17/22 11/17/22 14:39 14:24 14:20 WBC RBC Hgb Hct POC Hct 31.0 L RDW Lymph % (Auto) Absolute Neutrophils POC VBG pO2 POC Venous O2 Sat POC Sodium 132 L POC BUN 39 H BUN POC Creatinine 1.5 H Glucose POC Glucose 178 H POC WB Ioniz Calcium 1.02 L AST Troponin T NT-Pro-B Natriuret Pep Procalcitonin 0.34 H POC Troponin I 0.31 H 11/17/22 11/17/22 11/17/22 14:20 14:20 14:20 WBC 13.8 H RBC 3.38 L Hgb 9.4 L Hct 28.6 L POC Hct RDW 15.3 H Lymph % (Auto) 13.3 L Absolute Neutrophils 10.49 H POC VBG pO2 POC Venous O2 Sat POC Sodium POC BUN BUN POC Creatinine Glucose POC Glucose POC WB Ioniz Calcium AST Troponin T 0.10 H* NT-Pro-B Natriuret Pep 15921.0 H Procalcitonin POC Troponin I Meds: Medications Acetaminophen (Acetaminophen 325 Mg Tablet) 650 mg PO Q6HP PRN; Protocol PRN Reason: Per Pain Protocol/Fever > 101 Albuterol Sulfate (Albuterol Sulfate 2.5 Mg/3 Ml Nebulizer) 2.5 mg NEB Q2HP PRN PRN Reason: Shortness Of Breath Albuterol/Ipratropium (Ipratropium/Albuterol 3 Ml Ampul.Neb) 3 ml NEB Q4HRT [facility] Last Admin: 11/18/22 11:44 Dose: Not Given Aspirin (Aspirin 81 Mg Tab.Chew) 81 mg CHEWED DAILY [facility] Last Admin: 11/18/22 10:19 Dose: 81 mg Atorvastatin Calcium (Atorvastatin 40 Mg Tablet) 40 mg PO DAILY [facility] Last Admin: 11/18/22 10:17 Dose: 40 mg Azithromycin (Azithromycin 250 Mg Tablet) 250 mg PO DAILY [facility]; Protocol Stop: 11/21/22 09:01 Last Admin: 11/17/22 22:47 Dose: 250 mg Dextrose (Dextrose 50% 50 Ml Vial) 0 ml IV UD PRN PRN Reason: Per Sliding Scale Dextrose (Dextrose 50% 50 Ml Vial) 0 ml IV UD PRN PRN Reason: Per Sliding Scale Diagnostic Test (Pha) (Accu-Chek 1 Each Strip) 1 each FS ACHS [facility] Last Admin: 11/18/22 11:53 Dose: 1 each Diagnostic Test (Pha) (Accu-Chek 1 Each Strip) 1 each FS ACHS [facility] Docusate Sodium (Docusate Sodium 100 Mg Capsule) 100 mg PO BID [facility] Last Admin: 11/18/22 10:20 Dose: Not Given Furosemide (Furosemide 20 Mg/2 Ml Vial) 20 mg IV BIDD [facility] Last Admin: 11/18/22 08:23 Dose: 20 mg Glucose (Dextrose 31 Gm Oral.Susp) 15 gm PO PRN PRN PRN Reason: Hypoglycemia Glucose (Dextrose 31 Gm Oral.Susp) 15 gm PO PRN PRN PRN Reason: Hypoglycemia Guaifenesin (Guaifenesin/Dextromethorphan 5ml Ud Cup) 10 ml PO Q4HP PRN PRN Reason: Cough Heparin Sodium (Porcine) (Heparin 5,000 Unit/Ml Vial) 5,000 unit SQ Q12 [facility] Last Admin: 11/18/22 10:19 Dose: 5,000 unit Insulin Glargine (Insulin Glargine, Human 1 Unit/0.01 Ml) 28 unit SQ [facility] Insulin Human Lispro (Insulin Lispro 1 Unit/0.01 Ml Unit) 0 unit SQ [facility]; Protocol Ketorolac Tromethamine (Ketorolac 15 Mg/Ml Vial) 15 mg IV Q6HP PRN; Protocol PRN Reason: Per Pain Protocol Stop: 11/19/22 19:06 Losartan Potassium (Losartan 25 Mg Tablet) 12.5 mg PO DAILY [facility] Melatonin (Melatonin 3 Mg Tablet) 6 mg PO HSP PRN PRN Reason: Insomnia Morphine Sulfate (Morphine 4 Mg/Ml Vial) 2 mg IV Q4HP PRN; Protocol PRN Reason: Per Pain Protocol Ondansetron HCl (Ondansetron 4 Mg/2 Ml Vial) 4 mg IV Q6HP PRN PRN Reason: Nausea And Vomiting Oxycodone HCl (Oxycodone Ir 5 Mg Tablet) 5 mg PO Q4HP PRN; Protocol PRN Reason: Per Pain Protocol Last Admin: 11/18/22 03:54 Dose: 5 mg Prednisone ([facility] 20 Mg Tablet) [facility] Admin: 11/18/22 08:36 Dose: 40 mg Senna (Sennosides 1 Tablet) 2 tab PO [facility] Last Admin: 11/17/22 21:41 Dose: 2 tab Sodium Chloride (0.9 % Sodium Chloride 10 Ml Syringe) 10 ml IV Q8 [facility] Last Admin: 11/18/22 05:26 Dose: 10 ml A/P Assessment and plan (1) CHF exacerbation: Status: Acute (2) Acute exacerbation of chronic obstructive pulmonary disease: Status: Acute (3) Pulmonary nodule: Status: Acute (4) Chronic kidney disease (CKD) stage G3a/A2, moderately decreased glomerular filtration rate (GFR) between 45-59 mL/min/1.73 square meter and albuminuria creatinine ratio between 30-299 mg/g: Status: Acute (5) H/O coronary atherosclerosis: Status: Acute (6) Acute and chronic respiratory failure with hypoxia: Status: Acute (7) Troponin level elevated: Status: Acute (8) Hyperglycemia due to type 1 diabetes mellitus: Status: Acute Narrative A/P Narrative: Assessment and Plans: 1. Acute on chronic respiratory failure with hypoxia: DDx: CHF exacerbation, COPD exacerbation, pneumonia: Supplemental oxygen therapy titrate to achieve spo2>=88-92% Physical therapy evaluation and treatment Strict intake and output measurement Daily weigh 2L/day fluid restriction Lasix 20mg IV BID Losartan No beta sy during exacerbation 2D echocardiogram, results pending Telemetry Prednisone DuoNEB NEB q4hr scheduled Albuterol NEB q2hr PRN wheezing Robitussin DM Serial lactic acid 1.4 Procalcitonin level 0.34 elevated CoVID screening negative 2. Pulmonary nodule, right midlung: CTA of the lung showed no evidence of pulmonary embolism, moderate CHF, moderate bilateral pleural effusions, and 2.6 cm right middle lobe nodule likely inflammatory. Repeat CT chest in 6-8 week as follow up to make sure resolution Tylenol ES Oxycodone Morphine Toradol 3. Chronic kidney disease III: DDx: Acute kidney injury Avoid nephrotoxic agents Saline lock with diuretics CMP in the morning to trend kidney functions 4. Elevated serum troponin: Likely demand ischemic type 2 ischemic given CHF Serial troponin downtrended Morphine Telemetry 5. h/o CAD s/p CABG: Aspirin Lipitor No beta sy during exacerbation Serial troponin downtrended 6. Hyperglycemia with T1DM: HgA1c Lantus 28 unit HS High scale Insulin Lispro SSI AC HS Accu Check AC HS Hypoglycemia protocol Diabetic diet GI ppx: not currently indicated DVT ppx: Heparin Code status: Full Prognosis: guarded Disposition: inpatient med surg telemetry Time Spent With Patient Time: Total time spent is greater than 50% in coordination of care (as documented) at patient's floor/unit and/or counseling patient: Subsequent: Total time with patient: 35 - 49 minutes QUALITY Stroke Symptom Onset Unknown: No VTE Deep Vein Thrombosis/Pulmonary Embolism Present on Admission: No
[2022-11-18] MEDS: ACETAMINOPHEN 500 MG TABLET PO PRN (14:41)
[2022-11-18] MEDS: AZITHROMYCIN 250 MG TABLET PO SCH (14:46)
[2022-11-18] MEDS ORDERED: INSULIN GLARGINE, HUMAN 1 UNIT/0.01 ML SQ SCH (21:00)
[2022-11-18] MEDS: SENNOSIDES 1 TABLET PO SCH (21:16)
[2022-11-18] MEDS: guaiFENesin/DEXTROMETHORPHAN 5ML UD CUP PO PRN (21:18)
[2022-11-19] MEDS: IPRATROPIUM/ALBUTEROL 3 ML AMPUL.NEB NEB SCH ×4 (00:09→10:56)
[2022-11-19] MEDS: guaiFENesin/DEXTROMETHORPHAN 5ML UD CUP PO PRN (05:44)
[2022-11-19] MEDS: 0.9 % SODIUM CHLORIDE 10 ML SYRINGE IV SCH (05:44)
[2022-11-19 06:45] LABS: Basophils # (Auto) 0.04 K/mcL (0.00-0.30); Basophils % (Auto) 0.4 % (0.0-2.0); Eosinophils # (Auto) 0.07 K/mcL (0.00-0.70); Eosinophils % (Auto) 0.6 % (0.0-7.0); Hematocrit 26.6 % (34.1-44.9); Hemoglobin 8.6 g/dL (11.2-15.7); Lymphocytes # (Auto) 1.53 K/mcL (1.50-4.80); Lymphocytes % (Auto) 13.6 % (15.5-49.0); Mean Cell Volume 84.2 fL (80.0-100.0); Mean Corpuscular HGB Conc 32.3 g/dL (31.0-36.0); Mean Platelet Volume 10.5 fL (8.8-12.5); Monocytes # (Auto) 0.62 K/mcL (0.10-0.90); Monocytes % (Auto) 5.5 % (1.0-12.0); Neutrophils % (Auto) 79.5 % (38.0-78.0); Platelet Count 373 K/mcL (140-440); RBC 3.16 M/mcL (3.59-5.38); Red Cell Distribution Width 15.3 % (11.5-14.5); WBC 11.3 K/mcL (4.5-11.0)
[2022-11-19 07:15] LABS: ALT/SGPT 23 U/L (<40); AST/SGOT 24 U/L (<32); Albumin 2.7 gm/dL (3.2-5.2); Albumin/Globulin Ratio 0.9 (1.0-2.3); Alkaline Phosphatase 100 U/L (39-117); Bilirubin,Total 0.2 mg/dL (0.1-1.0); Blood Urea Nitrogen 42 mg/dL (8-23); Calcium 8.4 mg/dL (8.6-10.4); Carbon Dioxide 23 mmol/L (22-30); Chloride 101 mmol/L (96-108); Glomerular Filtration Rate 42; Glucose 102 mg/dL (70-105)
[2022-11-19] MEDS: INSULIN LISPRO 1 UNIT/0.01 ML UNIT SQ SCH ×2 (07:16→12:18)
[2022-11-19 07:35] LABS: Estimated Average Glucose(eAG) 243 mg/dL; Hemoglobin A1C 10.1 % Hgb (4.0-6.0)
[2022-11-19] MEDS: HEPARIN 5,000 UNIT/ML VIAL SQ SCH (08:08)
[2022-11-19] MEDS: ACETAMINOPHEN 500 MG TABLET PO PRN (08:09)
[2022-11-19] MEDS: AZITHROMYCIN 250 MG TABLET PO SCH (08:09)
[2022-11-19] MEDS: predniSONE 20 MG TABLET PO SCH (08:10)
[2022-11-19] MEDS: ATORVASTATIN 40 MG TABLET PO SCH (08:11)
[2022-11-19] MEDS: ASPIRIN 81 MG TAB.CHEW CHEWED SCH (08:11)
[2022-11-19] MEDS: FUROSEMIDE 20 MG/2 ML VIAL IV SCH (08:13)
[2022-11-19] MEDS: DOCUSATE SODIUM 100 MG CAPSULE PO SCH (08:14)
[2022-11-19] MEDS ORDERED: LOSARTAN 25 MG TABLET PO SCH (09:00)
--- NOTE | 2022-11-19 10:25 | Discharge Summary ---
Discharge Provider Provider IMPORTANT FOLLOW-UP INFORMATION FOR PCP: Patient information: Note initiated : 11/19/22 at 10:20 am Service Date, if different from initiated Date: [] Patient: Nadeen Cabrales a 67 y/o F admitted on 11/17/22 for Shortness of breath, CHF, COPD exac.. Chief Complaint: [] Date of admission: 11/17/22 20:33 Discharge date: 11/19/22 Attending physician on admission: Melvin Mahajan Consults: 11/17/22 Consult to Physician [CONS] Stat Comment: Consulting Provider: Melvin Mahajan Reason For Exam: Physician to Consult Attending physician on discharge: Melvin Mahajan COURSE Hospital Course Hospital course: Ms. Cabrales is a 67 year old F history of congestive heart failure, CAD status post CABG, asthma, ex cigarette smoker, presenting with 6 months of gradually worsening shortness of breath. Patient stated she was hospitalized in May 2022 for CHF as well as pneumonia. Since she got out of the hospital, she is stated that her shortness of breath never improved and instead gradually worsening. At 1 point she was being placed on torsemide but then her PCP later asked her to stop taking it. Patient have home oxygen but she only used it as needed for shortness of breath. Anyway, she is coming of worsening shortness of breath, together with productive cough with brown sputum, respiratory wheezing, right lateral rib/chest pain, bilateral leg swelling, unintentional weight gain although she cannot quantify how much, as well as orthopnea with 2 pillows. She also is complaining of dyspnea on exertion with 20 feet's. Vital signs at ED presentation significant for oxygen desaturation to the point she was being placed up to 3 L/min nasal cannula oxygen. Labs significant for leukocytosis with WBC 13.8. Serum lactic acid 1.4. BNP 52849. Troponin 0.31, 0.21. Chest x- ray showing moderate CHF, and shows pulmonary noted right midlung. Admission request is called for acute on chronic respiratory failure with hypoxia suspecting CHF exacerbation and/or COPD exacerbations. 11/18: Patient has been afebrile overnight. Patient is on 2 L/min nasal cannula oxygen which is baseline. Blood and respiratory culture no growth to date. COVID screening negative. Fasting glucose 163. Pre lunch time glucose 405. Serial troponin downtrended. CTA of the lung showed no evidence of pulmonary embolism, moderate CHF, moderate bilateral pleural effusions, and 2.6 cm right middle lobe nodule likely inflammatory. She is complaining of same due to degree of shortness of breath. She is complaining of productive cough with brown sputum. She is complaining of respiratory wheezings. She denies any chest pain. She denies any fever chills or diaphoresis. Pending 2D echocardiogram report. Continue supplemental oxygen therapy. Continue IV Lasix as well as losartan for CHF exacerbations. Continue prednisone DuoNeb and albuterol and azithromycin for COPD exacerbations. Repeat CT of the chest in 6 to 8 weeks to follow-up with the pulmonary nodule. Lantus 28 units at bedtime plus high scale sliding scale insulin AC adjust for better glycemic control associated with type 1 diabetes mellitus. Physical therapy evaluation and treatment for placement planning. Overall condition guarded. Stay in [facility]. 11/19: Patient has which clinical stability. Decision made to discharge patient home with 1 week PCP follow-up appointment made for the patient. Prescriptions given to patient. All questions answered prior to patient being physically discharged. Discharge diagnosis: CHF exacerbation, COPD exacerbation Time Spent with Patient Time attestation: Total time spent providing and/or coordinating discharge services: Time spent: Greater than 30 minutes EXAM Constitutional Vitals: Temp Pulse Resp BP Pulse Ox O2 Del Method O2 Flow Rate 36.4 C 89 22 144/73 97 Nasal Cannula 2 11/19/22 07:38 11/19/22 07:38 11/19/22 07:38 11/19/22 07:38 11/19/22 07:38 11/19/22 07:38 11/19/22 07:38 General appearance: cooperative and no acute distress Head Head exam: Present atraumatic and normocephalic Eye Eye exam: Present EOMI and PERRL ENT ENT exam: Present mucous membranes moist, normal exam and normal external ear exam Additional comments: Nasal cannula in place Neck Neck exam: Present normal inspection; Absent lymphadenopathy, tenderness or thyromegaly Respiratory Respiratory exam: Present wheezes; Absent accessory muscle use or respiratory distress Cardiovascular Cardiovascular exam: Present systolic murmur; Absent JVD Additional comments: Sternal surgical scar, well healed GI/Abdominal GI/Abdominal exam: Present normal bowel sounds and soft; Absent organomegaly or tenderness Extremities Exam Extremities exam: Present full ROM, normal capillary refill, normal inspection and pedal edema; Absent tenderness Neurological Exam Neurological exam: Present alert, CN II-XII intact and oriented X3; Absent motor sensory deficit Psychiatric Psychiatric exam: Present normal affect and normal mood; Absent anxious or depressed Skin Skin exam: Present dry and intact Discharge Data Data Completed and Pending Labs on day of discharge: Labs from last 24 hours 11/19/22 11/19/22 11/19/22 05:21 05:21 05:21 WBC 11.3 H RBC 3.16 L Hgb 8.6 L Hct 26.6 L MCV 84.2 MCH 27.2 MCHC 32.3 RDW 15.3 H Plt Count 373 MPV 10.5 Immature Gran % (Auto) 0.4 Neut % (Auto) 79.5 H Lymph % (Auto) 13.6 L Luna % (Auto) 5.5 Eos % (Auto) 0.6 Baso % (Auto) 0.4 Lymph # (Auto) 1.53 Luna # (Auto) 0.62 Eos # (Auto) 0.07 Baso # (Auto) 0.04 Immature Gran # 0.04 Absolute Neutrophils 8.97 H Sodium 134 Potassium 4.7 Chloride 101 Carbon Dioxide 23 Anion Gap 10.0 BUN 42 H Creatinine 1.3 H GFR Calculation 42 Glucose 102 Hemoglobin A1c 10.1 H Estim Average Glucose 243 Calcium 8.4 L Total Bilirubin 0.2 AST 24 ALT 23 Alkaline Phosphatase 100 Total Protein 5.7 L Albumin 2.7 L Globulin 3.0 Albumin/Globulin Ratio 0.9 L POC Troponin I 11/18/22 10:30 WBC RBC Hgb Hct MCV MCH MCHC RDW Plt Count MPV Immature Gran % (Auto) Neut % (Auto) Lymph % (Auto) Luna % (Auto) Eos % (Auto) Baso % (Auto) Lymph # (Auto) Luna # (Auto) Eos # (Auto) Baso # (Auto) Immature Gran # Absolute Neutrophils Sodium Potassium Chloride Carbon Dioxide Anion Gap BUN Creatinine GFR Calculation Glucose Hemoglobin A1c Estim Average Glucose Calcium Total Bilirubin AST ALT Alkaline Phosphatase Total Protein Albumin Globulin Albumin/Globulin Ratio POC Troponin I 0.16 H Preliminary micro results at discharge 11/17/22 15:48 Blood Culture - Preliminary Blood 11/17/22 15:35 Blood Culture - Preliminary Blood 11/17/22 15:41 Gram Stain - Preliminary Sputum source - Expectorated Discharge Plan Patient/Caregiver Discharge Instructions Activity: increase activity as tolerated Diet: Consistent Carbohydrate Activity Restrictions/Additional Instructions: As discussed make sure to use at least 2 L per nasal cannula oxygen 24 hours a day and to you are completely improved. Make sure to follow-up with your PCP as soon as you get home. Use your inhalers as prescribed. Also use your nebulizer several times a day. Your temporary sent multiple prescription scription's including prednisone, furosemide and 2 different antibiotics. Please schedule follow up with PCP within 1 week. Prescriptions: New furosemide [Lasix] 40 mg tablet 40 mg PO QAM Qty: 10 0RF azithromycin 250 mg tablet See Rx Instructions .ROUTE .COMPLEX Qty: 6 0RF Rx Instructions: For 250 mg dose pack: take 500 mg today (day 1), then 250 mg for 4 days (days 2-5) prednisone 20 mg tablet 40 mg PO QDAY 5 Days Qty: 10 0RF Aspirin 81 mg PO DAILY Qty: 30 1RF atorvastatin 40 mg Tablet 40 mg PO DAILY Qty: 30 1RF azithromycin 250 mg Tablet 250 mg PO DAILY Qty: 2 0RF dextromethorphan-guaifenesin 10-100 mg/5 mL Syrup 10 ml PO Q4HP PRN (Reason: Cough) Qty: 237 1RF prednisone 20 mg Tablet 40 mg PO QAMCC Qty: 2 0RF losartan 25 mg Tablet 12.5 mg PO DAILY Qty: 15 1RF diphenhydramine HCl [Benadryl] 25 mg capsule 25 mg PO TID PRN (Reason: itching) Qty: 30 1RF furosemide [Lasix] 20 mg tablet 20 mg PO BID Qty: 60 1RF insulin glargine [Lantus Solostar U-100 Insulin] 100 unit/mL (3 mL) insulin pen 28 unit subcut QPM Qty: 15 1RF Prescription drug monitoring program results: PDMP reviewed and no issues identified Follow Up Plan Follow up with: PCP, PCP [Other] (in 1 week) Patient Disposition: Home, Self-Care Prognosis: Fair Rehab Potential: Good I certify that the patient requires SNF services: No Overall status at discharge: patient is progressing back to baseline Discharge Orders: Discharge Order (Routine); Ordered 11/19/22 Ordered By: Melvin PATINO VTE Deep Vein Thrombosis/Pulmonary Embolism Present on Admission: No
[2022-11-19] MEDS: oxyCODONE IR 5 MG TABLET PO PRN (11:06)
--- NOTE | 2022-11-19 18:19 | EKG ---
[facility] Test Date: 2022-11-17 Pat Name: Nadeen Cabrales Department: ED Room: Gender: Female Reimbursement Analyst: SB : [id number] Requested By: Julia Baugh Order Number: [id number] Reading MD: Doe Mccormick Measurements Intervals [place] Rate: 80 P: 59 ME: 180 QRS: 75 QRSD: 166 T: 224 QT: 429 QTc: 495 Interpretive Statements Sinus rhythm Multiple ventricular premature complexes IVCD, consider LBBB ST elevation secondary to IVCD Electronically Signed On 11-19-2022 18:19:17 PDT by Doe Mccormick /store/[email or web address]/[id number]
== END 2022-11-19 15:09 | disposition home or self-care (01) | DRG 291 ==
LOC: ED 14:03 → MEDSUR 20:33
PROVIDERS: ADMIT Internal Medicine; ATTEND Internal Medicine